=== PATIENT | female | born 1980 | race Caucasian/White ===

== ENCOUNTER → 2021-06-02 | Outpatient (CLI) | payer OTHER ==
[2016-06-27 21:48] VITALS: BP 148/77
--- NOTE | 2021-06-02 11:12 | RAD ---
EXAMINATION: US ABDOMEN COMPLETE INDICATION: 40 years, Female, right upper quadrant abdominal pain. COMPARISON: None TECHNIQUE: Grayscale, color Doppler and limited spectral Doppler images of the abdomen were obtained. FINDINGS: LIVER: SIZE (LENGTH): 17.7 cm. ECHOGENICITY: Increased. PARENCHYMA: Mild heterogeneous echotexture. No discrete focal lesion. INTRAHEPATIC BILE DUCTS: Nondilated. PORTAL VEIN: Patent with normal hepatopedal flow. GALLBLADDER: GALLBLADDER WALL THICKNESS: 2 mm. MORPHOLOGY: Mild gallbladder hydrops. No pericholecystic free fluid. LUMEN: Cholelithiasis in the gallbladder neck. COMMON BILE DUCT DIAMETER: 3.6 mm. RIGHT KIDNEY: MEASURES: 10.8 cm in length. MORPHOLOGY/PARENCHYMA: Normal corticomedullary differentiation with no shadowing calculus or discrete masses. COLLECTING SYSTEM: No hydronephrosis. LEFT KIDNEY: MEASURES: 11.3 cm in length MORPHOLOGY/PARENCHYMA: Normal corticomedullary differentiation with no shadowing calculus or discrete masses. COLLECTING SYSTEM: No hydronephrosis. SPLEEN: SIZE (LENGTH): 11.2 cm PARENCHYMA: Unremarkable. PANCREAS: VISUALIZED PORTIONS: Head and neck. APPEARANCE: Within normal limits. OTHER: RETROPERITONEUM, INFERIOR VENA CAVA: Normal caliber. AORTA: Normal caliber. FLUID:No free fluid. IMPRESSION: 1. Cholelithiasis without sonographic evidence of acute cholecystitis. 2. Mild diffuse hepatic steatosis. Electronically signed by: Zen Oakley MD (06/02/2021 11:10 AM) [id number]
== END ==
LOC: US 09:30
PROVIDERS: ATTEND Surgery
DX: K80.20 Calculus of gallbladder without cholecystitis without obstruction (principal); K76.0 Fatty (change of) liver, not elsewhere classified; K82.1 Hydrops of gallbladder
CPT/HCPCS: 76700